=== PATIENT | male | born 1990 | race African-American/Black ===

== ENCOUNTER 2020-06-06 09:24 | Emergency (ER) | payer BC ==
[~2020-06-06] VITALS: Ht 180.3 cm; Wt 90.7 kg
[2020-06-06 09:28] VITALS: BP 139/74
== END 2020-06-06 10:20 | disposition home or self-care (01) ==
LOC: ER 09:24
DX: S93.492A Sprain of other ligament of left ankle, initial encounter (principal); X50.1XXA Overexertion from prolonged static or awkward postures, initial encounter; Y93.67 Activity, basketball; Y92.89 Other specified places as the place of occurrence of the external cause; Y99.9 Unspecified external cause status